=== PATIENT | female | born 1965 | race Caucasian/White ===

== ENCOUNTER → 2023-06-23 | Outpatient (CLI) | payer MEDICARE ==
[2023-06-23 15:37] LABS: Basophils # (A) 0.04 X 10*3/uL (0.00-0.10); Basophils % (A) 0.9 %; Eosinophils # (A) 0.07 X 10*3/uL (0.04-0.35); Eosinophils % (A) 1.6 %; HCT 48.3 % (37.2-46.3); HGB 16.1 g/dL (12.0-15.0); Lymphocytes # (A) 1.57 X 10*3/uL (0.90-5.00); Lymphocytes % (A) 36.6 %; MCH 30.1 pg (27.0-32.0); MCHC 33.3 g/dL (32.0-37.0); MCV 90.3 FL (80.0-97.0); Mean Platelet Volume 11.7 FL (9.5-12.2); Monocytes # (A) 0.24 X 10*3/uL (0.20-1.00); Monocytes % (A) 5.6 %; NRBC Per 100 WBC 0 X 10*3/uL (0.00-0.01); Neutrophils # (A) 2.36 X 10*3/uL (1.80-7.70); Neutrophils % (A) 55.1 %; Platelet Count 116 X 10*3/uL (140-440); RBC 5.35 X 10*6/uL (4.10-5.20); RDW 14.1 % (11.5-14.5); WBC 4.29 X 10*3/uL (4.50-10.00)
[2023-06-23 17:48] LABS: Hepatitis B Surface Antigen Nonreactive (Nonreactive)
[2023-06-23 17:59] LABS: ALT 58 U/L (8-44); AST 82 U/L (13-35); Albumin 4.2 g/dL (3.8-4.9); Albumin/Globulin Ratio 1.02 Ratio (1.60-3.17); Alkaline Phosphatase 79 U/L (41-126); Blood Urea Nitrogen 12.4 mg/dL (9.0-27.0); Calcium 10.6 mg/dL (8.7-10.3); Carbon Dioxide 21.5 mmol/L (21.6-31.8); Chloride 103 mmol/L (96-109); Globulin 4.1 g/dL (1.6-3.3); Glucose 154 mg/dL (70-110); Potassium 4.3 mmol/L (3.5-5.5); Sodium 137 mmol/L (135-145); Total Bilirubin 0.7 mg/dL (0.3-1.2); Total Protein 8.3 g/dL (6.2-8.2)
== END | disposition home or self-care (01) ==
LOC: LABWHC1 10:39
PROVIDERS: ATTEND Nurse Practitioner Family
DX: B18.2 Chronic viral hepatitis C (principal)
CPT/HCPCS: 36415; 80053; 81596; 82105; 85025; 86704; 87340; 87522

== ENCOUNTER 2024-01-24 09:35 | Emergency (ER) | payer MEDICARE ==
[2024-01-24 09:47] VITALS: RESP 18
--- NOTE | 2024-01-24 10:14 | ED ---
General Adult HPI - General Chief complaint: Fall Stated complaint: Fall Time Seen by Provider: 01/24/24 09:43 Source: patient, EMS, RN notes reviewed, old records reviewed Mode of arrival: EMS Limitations: no limitations - History of Present Illness Initial comments: 58-year-old female presents status post fall. Patient states she was going outside to smoke. She tripped falling onto her right arm with immediate pain and deformity. No head or neck trauma. No chest or abdominal pain. She states she did feel dizzy but states this is normal for her to feel somewhat dizzy. - Related Data Home Medications Medication Instructions Recorded Confirmed Albuterol Sulfate [Ventolin HFA] 2 puff INHALATION RT-Q6H PRN 01/24/24 01/24/24 Aspirin 81 mg PO DAILY 01/24/24 01/24/24 Glimepiride [Amaryl] 2 mg PO [id number] 01/24/24 01/24/24 Metoprolol Tartrate [Lopressor] 25 mg PO BID 01/24/24 01/24/24 Rosuvastatin Calcium [Crestor] 40 mg PO HS 01/24/24 01/24/24 buPROPion XL [Wellbutrin XL] 300 mg PO DAILY 01/24/24 01/24/24 metFORMIN HCL 1,000 mg PO BID 01/24/24 01/24/24 Allergies Allergy/AdvReac Type Severity Reaction Status Date / Time codeine Allergy Itching/Hiv Verified 01/24/24 11:22 es Review of Systems ROS Statement: Those systems with pertinent positive or pertinent negative responses have been documented in the HPI. ROS Other: All systems not noted in ROS Statement are negative. Past Medical History Past Medical History: Diabetes Mellitus, Hypertension Additional Past Medical History / Comment(s): Stents x6 History of Any Multi-Drug Resistant Organisms: None Reported Past Surgical History: Section Additional Past Surgical History / Comment(s): stent Past Psychological History: No Psychological Hx Reported Smoking Status: Current every day smoker Past Alcohol Use History: None Reported Past Drug Use History: None Reported General Exam Limitations: no limitations General appearance: alert, in no apparent distress Head exam: Present: atraumatic, normocephalic Eye exam: Present: normal appearance, PERRL ENT exam: Present: normal exam Neck exam: Present: normal inspection. Absent: tenderness, meningismus Respiratory exam: Present: normal lung sounds bilaterally. Absent: respiratory distress, wheezes Cardiovascular Exam: Present: regular rate, normal rhythm GI/Abdominal exam: Present: soft. Absent: distended, tenderness, guarding Extremities exam: Present: other (Deformity to the mid humerus distal pulse intact. 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 sent in by a medical professional or institution (, PA, SUPER[employer], urgent care, hospital, or assisted...) When possible be specific @ -No Did you speak to anyone other than the patient for history (EMS, parent, family, police, friend...)? What history was obtained from this source @ -No Did you review nursing and triage notes (agree or disagree)? Why? @ -I reviewed and agree with nursing and triage notes Were old charts reviewed (outside hosp., previous admission, EMS record, old EKG, old radiological studies, urgent care reports/EKG's, assisted records)? Report findings @ -No old charts were reviewed Differential Musculoskeletal Muscular strain, contusion, ligament sprain, fracture, arthritis, septic arthritis, bursitis, cellulitis, muscle spasm, nerve compression, DVT, arterial occlusion, herpes zoster, electrolyte abnormality, tumor.... This is not meant to be in all inclusive list EKG interpreted by me (3pts min.). @Sinus rhythm rate of 70, MT interval 194, QRS duration 82, QTc 425 X-rays interpreted by me (1pt min.). @ -X-ray shows midshaft humerus fracture CT interpreted by me (1pt min.). @ -None done U/S interpreted by me (1pt. min.). @ -None done What testing was considered but not performed or refused? (CT, X-rays, U/S, labs)? Why? @ -None What meds were considered but not given or refused? Why? @ -None Did you discuss the management of the patient with other professionals (professionals i.e. Dr., PA, [employer], lab, RT, psych nurse, sexual assault social worker, fish machine feeder, teacher, foreign service officer, case folder)? Give summary @ -Orthopedics, Jeffry covering for Dr. Alexander recommends transfer, transfer team at [facility], [facility] physician Dr. Martinez Was smoking cessation discussed for >3mins.? @ -No Was critical care preformed (if so, how long)? @ -No Were there social determinants of health that impacted care today? How? (Homelessness, low income, unemployed, alcoholism, drug addiction, transportation, low edu. Level, literacy, decrease access to med. care, halfway, rehab)? @ -No Was there de-escalation of care discussed even if they declined (Discuss DNR or withdrawal of care, Hospice)? DNR status @ -No What co-morbidities impacted this encounter? (DM, HTN, Smoking, COPD, CAD, Cancer, CVA, ARF, Chemo, Hep., AIDS, mental health diagnosis, sleep apnea, morbid obesity)? @ -None Was patient admitted / discharged? Hospital course, mention meds given and route, prescriptions, significant lab abnormalities, going to OR and other pertinent info. @ -[58-year-old female status post fall with deformity to the humerus. 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 Concern for radial nerve injury. I did discuss case with orthopedics Jeffry covering for Dr. Alexander recommends to transfer at this time. Undiagnosed new problem with uncertain prognosis? @ -No Drug Therapy requiring intensive monitoring for toxicity (Heparin, Nitro, Insulin, Cardizem)? @ -No Were any procedures done? @ -Yes, sling and swath to the right upper extremity Diagnosis/symptom? @ -Midshaft humerus fracture with concern for radial nerve injury Acute, or Chronic, or Acute on Chronic? @ -Acute Uncomplicated (without systemic symptoms) or Complicated (systemic symptoms)? @ -Default Side effects of treatment? @ -No Exacerbation, Progression, or Severe Exacerbation? @ -No Poses a threat to life or bodily function? How? (Chest pain, USA, ID, pneumonia, PE, COPD, DKA, ARF, appy, cholecystitis, CVA, Diverticulitis, Homicidal, Suicidal, threat to staff... and all critical care pts) @ -Concern for radial nerve injury - Lab Data Result diagrams: 01/24/24 11:00 01/24/24 11:00 Lab Results 01/24/24 01/24/24 Range/Units 11:00 11:00 WBC 4.8 (3.8-10.6) k/uL RBC 5.30 (3.80-5.40) m/uL Hgb 16.4 H (11.4-16.0) gm/dL Hct 49.3 H (34.0-46.0) % MCV 93.0 (80.0-100.0) fL MCH 31.0 (25.0-35.0) pg MCHC 33.4 (31.0-37.0) g/dL RDW 14.4 (11.5-15.5) % Plt Count 89 L (150-450) k/uL MPV 8.1 Neutrophils % 72 % Lymphocytes % 22 % Monocytes % 4 % Eosinophils % 1 % Basophils % 1 % Neutrophils # 3.5 (1.3-7.7) k/uL Lymphocytes # 1.0 (1.0-4.8) k/uL Monocytes # 0.2 (0-1.0) k/uL Eosinophils # 0.0 (0-0.7) k/uL Basophils # 0.0 (0-0.2) k/uL Manual Slide Review Performed RBC Morphology Normal Sodium 137 (137-145) mmol/L Potassium 4.1 (3.5-5.1) mmol/L Chloride 106 (98-107) mmol/L Carbon Dioxide 21 L (22-30) mmol/L Anion Gap 10 mmol/L BUN 14 (7-17) mg/dL Creatinine 0.76 (0.52-1.04) mg/dL Est GFR (CKD-EPI)AfAm >90 (>60 ml/min/1.73 sqM) Est GFR (CKD-EPI)NonAf 87 (>60 ml/min/1.73 sqM) Glucose 124 H (74-99) mg/dL Calcium 10.0 (8.4-10.2) mg/dL Total Bilirubin 1.1 (0.2-1.3) mg/dL AST 35 (14-36) U/L ALT 22 (4-34) U/L Alkaline Phosphatase 61 (38-126) U/L Total Protein 8.6 H (6.3-8.2) g/dL Albumin 4.6 (3.5-5.0) g/dL Disposition Clinical Impression: Fall, Humerus fracture Disposition: OTHER INSTITUTION NOT DEFINED Condition: Stable Is patient prescribed a controlled substance at d/c from ED?: No Referrals: Pat Grady MD [Primary Care Provider] - 1-2 days Time of Disposition: 12:45 - Out of Hospital Transfer - Req. Specs Out of Hospital Transfer - Requested Specifics: Other Emergency Center (Transfer to [facility])
[2024-01-24] MEDS: HYDROmorphone 0.5 MG/0.5 ML SYRINGE IVP STA ×3 (10:53→14:53)
--- NOTE | 2024-01-24 11:15 | XR ---
EXAMINATION TYPE: XR humerus RT DATE OF EXAM: 01/24/2024 COMPARISON: NONE CLINICAL INDICATION: Female, 58 years old with history of fall/pain; TECHNIQUE: 2 views submitted. FINDINGS: Significantly displaced midshaft right humeral fracture. Soft tissue edema. Glenohumeral and AC joint arthropathy. IMPRESSION: 1. Significantly displaced mid humeral fracture. [facility], , 01/24/2024 11:13 AM
[2024-01-24 11:18] LABS: ALT 22 U/L (4-34); AST 35 U/L (14-36); African American GFR (CKD) >90 (>60 ml/min/1.73 sqM); Albumin 4.6 g/dL (3.5-5.0); Alkaline Phosphatase 61 U/L (38-126); Anion Gap 10 mmol/L; Blood Urea Nitrogen 14 mg/dL (7-17); Carbon Dioxide 21 mmol/L (22-30); Chloride 106 mmol/L (98-107); Glucose 124 mg/dL (74-99); Non-African American GFR(CKD) 87 (>60 ml/min/1.73 sqM); Potassium 4.1 mmol/L (3.5-5.1); Sodium 137 mmol/L (137-145); Total Bilirubin 1.1 mg/dL (0.2-1.3); Total Protein 8.6 g/dL (6.3-8.2)
[2024-01-24 11:19] LABS: Basophils % (A) 1 %; Eosinophils % (A) 1 %; HCT 49.3 % (34.0-46.0); HGB 16.4 gm/dL (11.4-16.0); Lymphocytes % (A) 22 %; MCHC 33.4 g/dL (31.0-37.0); Mean Platelet Volume 8.1; Monocytes # (A) 0.2 k/uL (0-1.0); Monocytes % (A) 4 %; Neutrophils # (A) 3.5 k/uL (1.3-7.7); Neutrophils % (A) 72 %; RDW 14.4 % (11.5-15.5); WBC 4.8 k/uL (3.8-10.6)
[2024-01-24 12:37] LABS: Platelet Count 89 k/uL (150-450)
[2024-01-24 12:39] LABS: RBC Morphology Normal
[2024-01-24 14:31] VITALS: BP 120/80; PULSE 77; TEMP 97.8
== END 2024-01-24 15:04 | disposition other institution (70) ==
LOC: EC 09:35
DX: M79.621 Pain in right upper arm (principal); S42.301A Unspecified fracture of shaft of humerus, right arm, initial encounter for closed fracture; F17.200 Nicotine dependence, unspecified, uncomplicated; Z88.5 Allergy status to narcotic agent; W01.0XXA Fall on same level from slipping, tripping and stumbling without subsequent striking against object, initial encounter
CPT/HCPCS: 36415; 93005; 80053; 85025; 73060; 99285; 96374; 96375 ×2; 29105; J1171; 29705